=== PATIENT | female | born 1995 | race Native Hawaiian/Other Pacific Islander ===

== ENCOUNTER 2018-10-21 06:03 | Emergency (ER) | payer OTHER ==
[~2018-10-21] VITALS: Ht 160 cm; Wt 50.0 kg
[2018-10-21] MEDS ORDERED: ALBU8HFA IH (06:06)
[2018-10-21] MEDS: ALBUTEROL SULFATE 2.5 MG/0.5 ML NEB SOLUTION NEB ONE ×2 (06:40→07:36)
[2018-10-21] MEDS: IPRATROPIUM BROMIDE 0.5 MG/2.5 ML NEB SOLUTION NEB ONE ×2 (06:40→07:36)
[2018-10-21] MEDS: PredniSONE 20 MG TABLET PO ONE (07:15)
[2018-10-21] MEDS: ALBUTEROL SULFATE HFA 90 MCG/PUFF 8 GM INHALER IH ONE (07:16)
[2018-10-21 08:12] VITALS: BP 121/54
== END 2018-10-21 08:15 | disposition home or self-care (01) ==
LOC: EEVIPCON 06:04 → EMS 06:04
DX: J45.901 Unspecified asthma with (acute) exacerbation (principal); R07.89 Other chest pain
CPT/HCPCS: 71046; 94640; 99284; J7512; J3535

== ENCOUNTER 2023-10-16 16:16 | Emergency (ER) | payer OTHER, MEDICAID ==
[~2023-10-16] VITALS: Ht 157.5 cm; Wt 59.1 kg
[~2023-10-16 16:16] MED LIST: ALBU18HF12 IH
[2023-10-16 16:18] VITALS: TEMP 98.4
[2023-10-16] MEDS ORDERED: SERT-162 PO (16:23)
[2023-10-16] MEDS: ACETAMINOPHEN 500 MG TABLET PO ONE (17:15)
[2023-10-16 18:01] LABS: BASOPHILS % (AUTO) 0.3 % (0.0-2.0); EOSINOPHILS % (AUTO) 1.5 % (1.0-6.0); HEMATOCRIT 42.5 % (36-46); HEMOGLOBIN 14.6 g/dL (12.0-16.0); LYMPHOCYTES # (AUTO) 1.8 K/uL (1.0-4.8); LYMPHOCYTES % (AUTO) 19.7 % (22.0-44.0); MEAN CORPUSCULAR HEMOGLOBIN 28.9 pg (26.0-34.0); MEAN CORPUSCULAR HGB CONC 34.4 G/dL (31.0-37.0); MEAN CORPUSCULAR VOLUME 84 fL (80-100); MONOCYTES # (AUTO) 0.4 K/uL (0.1-1.0); MONOCYTES % (AUTO) 4.3 % (2.0-9.0); NEUTROPHILS # (AUTO) 6.8 K/uL (1.8-7.7); NEUTROPHILS % (AUTO) 74.2 % (40.0-70.0); PLATELET COUNT (AUTO) 293 K/uL (150-450); RED BLOOD CELL COUNT(AUTO) 5.05 MIL/uL (4.00-5.20); RED CELL DISTRIBUTION WIDTH 12.3 % (11.5-14.5); WHITE BLOOD COUNT (AUTO) 9.2 K/uL (4.5-11.0)
[2023-10-16 18:10] LABS: ANION GAP 9 mmol/L (8-16); CALCIUM, TOTAL 9.5 mg/dL (8.8-10.5); CARBON DIOXIDE 25 mmol/L (22-29); CHLORIDE 103 mmol/L (98-107); CREATININE 0.65 mg/dL (0.60-1.30); GLOMERULAR FILTR. RATE CALC > 60 mL/min (>60); GLUCOSE,RANDOM 99 mg/dL (70-110); POTASSIUM 3.6 mmol/L (3.5-5.1); SODIUM SERUM 137 mmol/L (136-145); UREA NITROGEN, BLOOD 11 mg/dL (7-18)
[2023-10-16 18:17] LABS: ALANINE AMINOTRANSFERASE 22 U/L (12-78); ALBUMIN 4.1 g/dL (3.4-5.0); ALKALINE PHOSPHATASE 70 U/L (46-116); ASPARTATE AMINOTRANSFERASE 17 U/L (15-37); BILIRUBIN,TOTAL 0.4 mg/dL (0.1-1.0); TOTAL PROTEIN, SERUM 8.4 g/dL (6.4-8.2)
[2023-10-16 18:18] LABS: ALCOHOL, BLOOD (SERUM) < 3 mg/dL (0-10)
[2023-10-16 20:13] LABS: COVID AG,FIA SOURCE NASAL SWAB
[2023-10-16] MEDS ORDERED: LORazepam 2 MG TABLET PO PRN (20:15)
[2023-10-16] MEDS ORDERED: ZOLPIDEM TARTRATE 10 MG TABLET PO PRN (20:15)
[2023-10-16] MEDS ORDERED: HALOPERIDOL 5 MG TABLET PO PRN (20:15)
[2023-10-16 20:51] LABS: SARS-COV2 (COVID) ANTIGEN,FIA Negative (Negative)
[2023-10-17 03:58] VITALS: BP 124/84; PULSE 85; RESP 16
== END 2023-10-17 04:53 | disposition hospice, home (50) ==
LOC: EMS 16:40 → UNDOADMIN 21:09 → B3A 21:09 → EMS 10-17 04:53
DX: F32.9 Major depressive disorder, single episode, unspecified (principal); R45.851 Suicidal ideations; J45.909 Unspecified asthma, uncomplicated; Z20.822 Contact with and (suspected) exposure to COVID-19
CPT/HCPCS: 99285; 87426; 80053; 84703; 85025; 36415; G0480